=== PATIENT | male | born 1955 | race Caucasian/White ===

== ENCOUNTER 2016-06-16 06:16 | Inpatient (IN) ==
[2016-06-16] MEDS ORDERED: Lidocaine -MPF 4% 5 ML AMPUL ONE (06:30)
[2016-06-16] MEDS ORDERED: Vancomycin 1,000 MG in D5% in Water 250 ML IVPB ONE ×3 (06:38→19:00)
[2016-06-16] MEDS ORDERED: Lidocaine 1% 20 ML MDV ID ONE (06:38)
[2016-06-16] MEDS ORDERED: CeFAZolin Pre 2,000 MG/100 ML 2,000 MG/100 ML BAG IVPB ONE (06:38)
[2016-06-16] MEDS ORDERED: *HR* Midazolam HCl 2 MG/2 ML VIAL ONE (06:41)
[2016-06-16] MEDS ORDERED: *HR* FentaNYL (PF) 100 MCG/2 ML VIAL ONE ×2 (06:41→09:47)
[2016-06-16] MEDS ORDERED: *HR* Propofol 200 MG/20 ML VIAL IVP ONE ×2 (06:41)
[2016-06-16] MEDS ORDERED: Albuterol 2.5 MG/3 ML NEBULIZER IH ONE (06:41)
[2016-06-16] MEDS ORDERED: Ringers Solution, Lactated 1,000 ML IVC SCH (06:45)
[2016-06-16] MEDS ORDERED: *HR* Phenylephrine 10 MG/ML VIAL ONE (06:47)
[2016-06-16] MEDS ORDERED: *HR* Rocuronium Bromide 50 MG/5 ML VIAL ONE (06:47)
[2016-06-16] MEDS ORDERED: *HR* EPINEPHrine 1 MG/ML AMPUL ONE (06:47)
[2016-06-16] MEDS ORDERED: Dexamethasone 4 MG/ML VIAL ONE (06:47)
[2016-06-16] MEDS ORDERED: Ondansetron 4 MG/2 ML VIAL ONE (06:47)
[2016-06-16] MEDS ORDERED: Lidocaine -MPF 2% 2 ML VIAL ONE (06:47)
[2016-06-16] MEDS ORDERED: *HR* Succinylcholine 200 MG/10 ML VIAL IVP ONE (06:47)
--- NOTE | 2016-06-16 07:16 | Anesthesia Evaluation PreOp ---
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) Other Medical History: Hepatic (hepatitis C), GERD Anesthesia History: No Prior Anesthetic Complications, Past Anesthesia Alcohol Use: occasionally, recent Drug use: marijuana Medications and Allergies Budesonide/Formoterol 160/4.5 [Symbicort 160/4.5] 2 puff IH BIDR 05/06/15 [ History] Cilostazol [Pletal] 100 mg PO BID 05/06/15 [History] Clopidogrel [Plavix] 75 mg PO HS 05/06/15 [History] Lisinopril [Zestril] 20 mg PO HS 05/06/15 [History] Lovastatin 10 mg PO HS 05/06/15 [History] TraZODone 50 - 100 mg PO HS MDD 50 05/06/15 [History] Albuterol Sulfate [Albuterol Inhaler] 2 puff IH Q4HR PRN 06/16/16 [History] Aspirin Enteric Coated [Aspirin EC] 81 mg PO DAILY 06/16/16 [History] Buspirone HCl [Buspar] 30 mg PO BID 06/16/16 [History] Cholecalciferol (Vitamin D3) [Vitamin D] 2,000 unit PO DAILY 06/16/16 [History] Methocarbamol [Robaxin] 500 mg PO BID 06/16/16 [History] Ranitidine HCl [Zantac] 150 mg PO BID 06/16/16 [History] Allergies acetaminophen [From Vicodin] Adverse Reaction (Verified 06/16/16 07:21) Nausea hydrocodone [From Vicodin] Adverse Reaction (Verified 06/16/16 07:21) Nausea - Meds/Allergy Pre-op Review Medications Reviewed: Yes Allergies Reviewed: Yes Beta Blockers on Current Med List: No Anesthesia Results - Labs Laboratory Tests 06/10/16 06/10/16 06/10/16 11:07 11:07 11:07 WBC 4.5 Hgb 10.2 L Hct 32.3 L Plt Count 226 PT 11.9 INR 1.1 APTT 30.1 Sodium 134 L Potassium 4.1 BUN 6 L Creatinine 0.92 - Imaging EKG: report reviewed (12/01/2015 SR) Additional studies: 07/05/2013 Echo Impressions: LVEF 55-60%. Normal left ventricular structure and function. Mild left ventricular diastolic dysfunction. Normal right ventricular structure and function. No evidence of PFO with agitated saline contrast. No significant valvular dysfunction. Unable to estimate RVSP due to lack of TR jet. Anesthesia Exam O2 Sat Height 1.83 m Height 1.83 m Height 1.83 m Weight 72.121 kg Weight 72.121 kg Weight 72.121 kg O2 Sat by Pulse Oximetry 100 O2 Sat by Pulse Oximetry 100 Vital Signs Temp Pulse Resp BP Pulse Ox 98.0 F 71 18 141/76 100 06/16/16 06:43 06/16/16 06:43 06/16/16 06:43 06/16/16 06:43 06/16/16 06:43 Height: 6' Weight: 159 lbs NPO (# of Hours): 8 Pain Scale: 5 (back/neck) Pain Scale Used: Numeric (1 - 10) - HEENT Pupil (Motor): EOMI Mallampati: II Teeth: Edentulous Denture Type: Upper: Complete, Lower: Complete Oral Opening: Greater than 3 - [employer] LOC: Oriented [employer] Motor: Normal RUE, Normal LUE, Normal RLE, Normal LLE, Normal Face [employer] Sensory: Normal: RUE, LUE, RLE, LLE, Face - Cardiac Rhythm: Regular Murmur: None - Pulmonary Breath Sounds: bilateral Clear Respiratory Effort: Symmetrical Anesthesia Assess/Plan ASA Score: 3 Modified [place] Scale for Level of Consciousness: Cooperative, oriented, and tranquil Anesthetic Plan: General Monitoring Plan: Standard Monitors Recovery Plan: PACU
[2016-06-16] MEDS ORDERED: Vancomycin 1,000 MG VIAL ONE (07:19)
[2016-06-16] MEDS ORDERED: Heparin 1,000 UNITS/500 mL NS 1,000 ML ONE (07:20)
--- NOTE | 2016-06-16 07:34 | History & Physical Report ---
Date of Encounter: 06/16/16 Time of Encounter: 07:28 24 Hour HP Update - Instructions Instructions: If the History and Physical is less than 30 days old and was completed prior to A.M. admission and or procedure and has NOT been updated on calendar day of procedure please complete this update prior to performing procedure. - Update Patient reports changes in Medical Condition: No Changes in assessment/condition: No Changes in Medication: No Preop tests/diagnostics Reviewed: Yes Surgery Remains Indicated: Yes Consent for Planned Operative Procedure(s) Verified: Yes - Pre-Operative Checklist Preoperative Checklist Indicated: Yes Prophylactic Antibiotic Ordered: Yes (Vancomycin due to MRSA risk) Home Medications Include Beta Jacobo: No Beta Jacobo Taken Today (Day of Surgery): No Beta Jacobo Taken Yesterday (Day Prior to Surgery): No Is VTE Prophylaxis Indicated?: Yes
[2016-06-16] MEDS ORDERED: EPHEDrine 50 MG/ML VIAL ONE (08:41)
[2016-06-16] MEDS ORDERED: *HR* HYDROmorphone 2 MG/ML SYRINGE ONE (08:49)
[2016-06-16] MEDS ORDERED: *HR* HYDROmorphone (PF) 1 MG/ML SYRINGE IVP PRN (09:12)
[2016-06-16] MEDS ORDERED: *HR* Labetalol 100 MG/20 ML MDV IVP PRN (09:12)
[2016-06-16] MEDS ORDERED: *HR* Promethazine 25 MG/ML VIAL IVP PRN (09:12)
--- NOTE | 2016-06-16 11:20 | Operative Note ---
Date of procedure: 06/16/16 Pre-op diagnosis: Peripheral vascular disease with disabling claudication Post-op diagnosis: same Procedure: 1. Abdominal aortogram 2. Left common iliac artery 8 x 37mm stent placement. 3. Left iliofemoral endarterectomy with hemashield patch angioplasty. 4. Left deep and superficial femoral endarterectomy. Complications: None Anesthesia: SABINA Surgeon: Willian Canales Estimated blood loss (cc): 200 Specimen: left lower extremity plaque Condition: stable Disposition: PACU Procedure in Detail: Indications: The patient is a 61 year old male with multiple medical comorbidities including hypertension, hyperlipidemia and tobacco abuse. The patient presented to clinic with disabling left lower extremity claudication. Revascularization was recommended for symptomatic relief. Procedure: The patient was identified in the preoperative area. The risks, benefits, and alternatives of procedure were discussed and all questions were answered. He was taken to the operating room and placed in supine position on the operating room table. After the induction of general endotracheal anesthesia, he was cleaned and draped in normal sterile fashion. An oblique incision was made along the left groin sharply. Hemostasis was obtained with electrocautery. Through a process of blunt and sharp electrocautery dissection, the skin and subcutaneous tissues were incised and the mid to distal external iliac artery was dissected underneath the inguinal ligament and a vessel loop was passed around it. The common femoral artery, deep femoral artery and superficial femoral artery were dissected circumferentially and surrounded with vessel loops. The superficial femoral artery was palpated and the dissection was extended distally until it was noted to be soft without significant plaque. A vessel loop was then used to surround the artery. The patient received 5000 units of heparin intravenously and additional heparin throughout the case to maintain adequate anticoagulation. The vessels were occluded. A large bore needle was used to cannulate the left common femoral artery along an area with soft plaque. A treadalongson wire was advanced into the aorta under fluoroscopic view. A 6 icelandic sheath was exchanged for the needle over the wire. An omniflush catheter was then advanced over the wire. The wire was removed and an angiogram was performed. Angiographys revealed a patent right common iliac stent with stenosis distal to the stent. A wire was used to cross the lesion. The 6 icelandic sheat was exchanged for a long 6 icelandic sheath over the wire, However, the sheath would not cross the stent. The short sheath was then replaced. A jennifer catheter was advnaced over the wire and positioned withtin the stent. It spun freely which indicated that the wire was within the preexisting stent and not behind it. A stent was advanced over the wire, but it would not cross the preexisting stent either. As the stent was withdrawn, it was noted to be caught on the preexisting stent. The stent released. Upon removal of the stent, the stent was noted to be in the left common iliac artery. Attempts were made to retrieve the stent with a snare. However, the stent was lodged against a common iliac artery stenosis. Therefore, an 8 x 37mm stent was advanced across the stenosis and deployed. This secured the first stent in place and prevented future distal embolization. Angiography revealed adequate placement of the stent and the wire and sheath were removed. A longitudinal arteriotomy was made sharply into the common femoral artery. It was extended under the inguinal ligament into the external iliac artery proximally beyond the arterial puncture site. It was then extended into the superficial femoral artery distally. Using a dental freer, an endarterectomy was performed from the external iliac artery through the common femoral artery. The plaque was irregular and hevily calficied. Proximally, the lumen became patent without significant stenosis. The plaque was excised sharply and no elevated flaps were noted at the endpoint. Distally, the plaque was excised at the deep femoral artery. Using a dental freer, the plaque was circumferentially excised from the deep femoral artery using an eversion technique. Release of the loop revealed significant retrograde flow. The loop was tightened. Using the dental freer, a superficial femoral endarterectomy was performed on the irregular, high grade stenotic plaque. The dissection was continued for several centimeters until the lumen was patent without significant stenosis. The plaque was excised and no elevated flap was noted. Retrograde flow was noted through the superficial femoral artery on release of the loop. The loop was tightened. The lumen was irrigated with heparinzed saline. A bovine pericardial patch was cut to fit the defects in the external iliac, common femoral and superficial femoral arteries. The patch was sutured in place with running 6-0 Prolene. Prior to completing the patch anastomosis, each vessel was flushed individually, then reoccluded. Heparinized saline was infused into the lumen. The patch was completed and flow was restored. Thrombin and Gelfoam were used to aid in hemostasis. Polyphasic signal was noted distal to the distal end of the patch as well as the posterior tibial artery. Wound was irrigated with antibiotic-containing saline. Platelet-rich and platelet-poor plasma were infused into the wound. The wounds were reapproximated with layer of 2-0 Vicryl followed by two layers of 3-0 and Vicryl 3-0 Monocryl in the subcuticular layer. Sterile dressings were applied. The patient was extubated and taken to recovery room in stable condition.
[2016-06-16] MEDS ORDERED: Acetaminophen 325 MG TABLET PO PRN (12:36)
[2016-06-16] MEDS ORDERED: Naloxone 0.4 MG/ML INJ IVP PRN (12:36)
[2016-06-16] MEDS ORDERED: traMADol 50 MG TABLET PO PRN (12:36)
[2016-06-16] MEDS ORDERED: Ondansetron 4 MG/2 ML VIAL IVP PRN (12:36)
[2016-06-16] MEDS ORDERED: *HR* Labetalol 20 MG/4 ML SYRINGE IVP PRN (12:36)
[2016-06-16] MEDS ORDERED: *HR* Morphine 2 MG/ML SYRINGE IVP PRN (12:36)
--- NOTE | 2016-06-16 13:19 | Anesthesia Evaluation Post Op ---
Date of Encounter: 06/16/16 Time of Encounter: 13:18 - Vital Signs Vital Signs: Vital Signs/O2 Sat, Most Current Temp Pulse Resp BP Pulse Ox 97.6 F 90 18 110/70 98 06/16/16 12:32 06/16/16 12:52 06/16/16 12:32 06/16/16 12:32 06/16/16 12:32 - Lungs Lungs: Clear Ascult./Percussion - Airway Airway: Non-obstructed - Cardiovascular Regular Rate - Mental Status Mental Status: Alert & Oriented, Answers Appropriately - Pain Pain Scale: 3 Pain Scale used: Numeric (1 - 10) - Nausea Vomiting Nausea Vomiting: Not Present - Hydration Hydration: Tolerates oral liquids, Marlow catheter
[2016-06-16] MEDS: *HR* Metoprolol 5 MG/5 ML VIAL IVP SCH ×2 (14:16→16:59)
[2016-06-16] MEDS: *HR* OxyCODONE Immed Rel 5 MG TABLET PO PRN (14:19)
[2016-06-16] MEDS: ceFAZolin 2,000 MG in D5% in Water 100 ML IVPB SCH (16:57)
[2016-06-16] MEDS ORDERED: *HR* Heparin 5,000 UNIT/ML VIAL SQ SCH (18:00)
[2016-06-16] MEDS: Budesonide/Formoterol 160/4.5 MDI IH SCH (20:04)
[2016-06-16] MEDS ORDERED: traZODone 50 MG TABLET PO SCH (21:00)
[2016-06-16] MEDS: Famotidine 20 MG TABLET PO SCH (21:09)
[2016-06-16] MEDS: Methocarbamol 500 MG TABLET PO SCH (21:09)
[2016-06-17] MEDS: ceFAZolin 2,000 MG in D5% in Water 100 ML IVPB SCH (00:04)
[2016-06-17] MEDS: *HR* Metoprolol 5 MG/5 ML VIAL IVP SCH ×3 (00:05→12:33)
[2016-06-17 04:54] LABS: BUN/Creatinine Ratio 7 (6-26); Blood Urea Nitrogen 6 mg/dL (8-26); Calcium 7.7 mg/dL (8.6-10.8); Carbon Dioxide 27 mEq/L (19-29); Chloride 103 mEq/L (98-109); Glucose 102 mg/dL (70-99); Osmolality,Calculated 280 (280-300); Potassium 3.5 mEq/L (3.5-4.5); Sodium 136 mEq/L (136-145); eGFR For African Americans > 60 (> 60); eGFR For Non-African Americans > 60 (> 60)
[2016-06-17 04:56] LABS: Basophils % 0.5 %; Eosinophils % 0.6 %; Hematocrit 20.2 % (37.5-50.1); Immature Granulocytes % 0.2 % (0-4); Lymphocytes # 1.6 K/mcL (0.6-4.6); Lymphocytes % 26.1 %; Mean Corpuscular HGB Conc 31.7 g/dL (31.6-35.5); Mean Corpuscular Hemoglobin 29.4 pg (28.0-33.3); Mean Corpuscular Volume 92.7 fL (83.0-100.0); Mean Platelet Volume 10.7 fL (9.4-12.4); Monocytes # 0.9 K/mcL (0.0-1.3); Monocytes % 14.4 %; Neutrophils # 3.6 K/mcL (1.6-8.9); Platelet Count 151 K/mcL (140-400); Red Blood Count 2.18 M/mcL (4.19-5.50); Red Cell Distribution Width 15.4 % (11.5-14.5); Segmented Neutrophils % 58.2 %
[2016-06-17 05:17] LABS: Hemoglobin 6.4 g/dL (12.9-16.9)
[2016-06-17] MEDS ORDERED: Lisinopril 20 MG TABLET PO SCH (09:00)
[2016-06-17] MEDS ORDERED: Aspirin Enteric Coated 81 MG Tablet PO SCH (09:00)
[2016-06-17] MEDS ORDERED: Cholecalciferol (D-3) 1,000 UNIT TABLET PO SCH (09:00)
[2016-06-17] MEDS ORDERED: *HR* Heparin 5,000 UNIT/ML VIAL SQ SCH (09:00)
--- NOTE | 2016-06-17 09:17 | Discharge Summary ---
Date of Encounter: 06/17/16 Time of Encounter: 10:20 - Discharge Diagnosis (1) Atherosclerosis of [place] arteries of extremities with intermittent claudication, bilateral legs Priority: Primary Status: Chronic Comments: The patient is postoperative day #1 after left femoral endarterectomy and iliac stent. He is alert and stable. His foot is warm. He has no hematoma. He will be discharged today. (2) HTN (hypertension) Priority: Secondary Status: Chronic Comments: The patient was counseled regarding atherosclerotic risk factor reduction. Qualifiers: Hypertension type: essential hypertension Qualified Code(s): I10 - Essential (primary) hypertension (3) COPD (chronic obstructive pulmonary disease) Priority: Secondary Status: Chronic Qualifiers: COPD type: emphysema Emphysema type: panlobular Qualified Code(s): J43.1 - Panlobular emphysema (4) Chronic anemia Priority: Secondary Status: Chronic Comments: The patient has chronic anemia. He is hemodynamically stable without evidence of ongoing blood loss. He is able to ambulate without difficulty and is not short of breath. (5) Tobacco abuse Priority: Secondary Status: Chronic Comments: He was counseled regarding smoking cessation. - Discharge Medications Prescriptions: OxyCODONE/APAP 5/325 [Percocet 5/325 MG] 1 each PO Q4HR PRN #40 tablet PRN Reason: POSTOPERATIVE PAIN Home Medications: Budesonide/Formoterol 160/4.5 [Symbicort 160/4.5] 2 puff IH BIDR 05/06/15 [ History] Cilostazol [Pletal] 100 mg PO BID 05/06/15 [History] Clopidogrel [Plavix] 75 mg PO DAILY 05/06/15 [History] Lisinopril [Zestril] 20 mg PO DAILY 05/06/15 [History] Lovastatin 10 mg PO DAILY 05/06/15 [History] TraZODone 50 - 150 mg PO HS MDD 150 05/06/15 [History] Albuterol Sulfate [Albuterol Inhaler] 2 puff IH Q4HR PRN 06/16/16 [History] Aspirin Enteric Coated [Aspirin EC] 81 mg PO DAILY 06/16/16 [History] Buspirone HCl [Buspar] 30 mg PO BID 06/16/16 [History] Cholecalciferol (Vitamin D3) [Vitamin D3] 2,000 unit PO DAILY 06/16/16 [History] Methocarbamol [Robaxin] 500 mg PO BID 06/16/16 [History] Ranitidine HCl [Zantac] 150 mg PO BID 06/16/16 [History] OxyCODONE/APAP 5/325 [Percocet 5/325 MG] 1 each PO Q4HR PRN #40 tablet 06/17/16 [Rx] Allergies/Adverse Reactions: Allergies acetaminophen [From Vicodin] Adverse Reaction (Verified 06/16/16 07:21) Nausea hydrocodone [From Vicodin] Adverse Reaction (Verified 06/16/16 07:21) Nausea Date of admission: 06/16/16 13:18 Primary care physician: Annamarie Denton Procedure(s) Performed: Left common iliac stent, left iliofemoral endarterectomy. Discharging clinician: Willian Canales Anticipated date of discharge: 06/17/16 - Patient Status Disposition: Home, Self-Care Condition: Good Functional capacity at discharge: independent ambulation Overall status at discharge: patient is back to baseline - Discharge Instructions Instructions: Oxycodone/Acetaminophen (By mouth), Femoropopliteal Bypass (DC), Cigarette Smoking and Your Health, Mason Liner (GEN) Follow Up With: Willian Canales MD [Partnered Physician] - 07/27/16 1:10 pm Annamarie Denton CNP [Primary Care Provider] - 06/24/16 9:00 am Additional Instructions: May remove bandage and shower on 06/18/16. Wash wound gently and pat to dry. Apply dry gauze to wound daily for 7 days. No tub baths or swimming until 07/11/16. Call Dr. Canales at [phone] with questions or concerns. Continue to use the incentive spirometer. HGB at discharge was 7.5 No driving until directed by Dr. Canales. Call for S/S of infection. Advance to your usual diet. Increase activity as tolerated. - Diet and Activity Activity: ambulate only with your walker, increase activity as tolerated Diet: advance to your usual diet - Hospital Course Hospital course: Mr. Mcintyre is a 61 year old male with a history of peripheral vascular disease with disabling claudication. He was admitted on 06/16/16. He was taken to the OR where he underwent an angiogram, a left common iliac stent and extensive left lower extremity endarterectomy. He tolerated the procedure well and was discharged on postoperative day #1 without complications. Time spent discussing smoking cessation with patient: 3 to 10 minutes - Time Spent with Patient Total time spent providing and/or coordinating discharge services: Exam Vital Signs, Last 4 Hours Temp Pulse Resp BP Pulse Ox 06/17/16 07:53 98.9 F 75 18 117/65 95 06/17/16 07:44 83 97 06/17/16 05:36 98.5 F 95 20 113/58 98 General: Present: Conversant, No Apparent Distress Neck: Absent: JVD, Lymphadenopathy Cardiac: Present: Reg Rate and Rhythm Lungs: Present: Normal Breath Sounds Neuro: Present: Alert and responsive, No focal deficits noted Vascular: Present: Normal capillary refill, Surgical incisions (clean, dry and intact without erythema or drainage, no hematoma), Other (pedal signals present) . Absent: Cyanosis, Edema Skin: Present: No rashes noted on visualized skin - VTE Documentation of Mechanical Device: Intermittent pneumatic compression device
[2016-06-17] MEDS: *HR* OxyCODONE Immed Rel 5 MG TABLET PO PRN (09:39)
[2016-06-17] MEDS: Methocarbamol 500 MG TABLET PO SCH (09:59)
[2016-06-17] MEDS: Famotidine 20 MG TABLET PO SCH (09:59)
[2016-06-17 10:39] LABS: Hematocrit 24.6 % (37.5-50.1); Hemoglobin 7.5 g/dL (12.9-16.9)
[2016-06-17 11:13] VITALS: BP 104/66
[2016-06-17] MEDS: Budesonide/Formoterol 160/4.5 MDI IH SCH (12:11)
== END 2016-06-17 14:09 | disposition home or self-care (01) | DRG 169 ==
LOC: SAMDAY 06:16 → 2NNU 13:18
PROVIDERS: ADMIT Surgery; ATTEND Surgery

== ENCOUNTER 2016-10-05 10:27 | Inpatient (IN) ==
[2016-10-05] MEDS ORDERED: Lidocaine -MPF 1% 2 ML VIAL ID ONE (10:44)
[2016-10-05] MEDS ORDERED: Vancomycin 1,000 MG in D5% in Water 250 ML IVPB ONE ×2 (10:44→23:30)
[2016-10-05] MEDS ORDERED: CeFAZolin Pre 2,000 MG/100 ML 2,000 MG/100 ML BAG IVPB ONE (10:44)
[2016-10-05] MEDS ORDERED: Albuterol 2.5 MG/3 ML NEBULIZER IH ONE (10:45)
[2016-10-05] MEDS ORDERED: Ringers Solution, Lactated 1,000 ML IVC SCH (10:45)
[2016-10-05] MEDS ORDERED: *HR* FentaNYL (PF) 100 MCG/2 ML VIAL ONE (10:50)
[2016-10-05] MEDS ORDERED: *HR* Propofol 200 MG/20 ML VIAL IVP ONE (10:54)
[2016-10-05] MEDS ORDERED: *HR* Rocuronium Bromide 50 MG/5 ML VIAL ONE (10:55)
[2016-10-05] MEDS ORDERED: Lidocaine -MPF 2% 2 ML VIAL ONE ×2 (10:55→12:55)
[2016-10-05] MEDS ORDERED: *HR* Midazolam HCl 2 MG/2 ML VIAL ONE (10:56)
[2016-10-05] MEDS ORDERED: *HR* Remifentanil 2 MG VIAL IVP ONE (10:58)
[2016-10-05] MEDS ORDERED: Vancomycin 1,000 MG in D5% in Water 250 ML IVPB SCH (11:30)
--- NOTE | 2016-10-05 11:31 | History & Physical Report ---
Date of Encounter: 10/05/16 Time of Encounter: 11:15 24 Hour HP Update - Instructions Instructions: If the History and Physical is less than 30 days old and was completed prior to A.M. admission and or procedure and has NOT been updated on calendar day of procedure please complete this update prior to performing procedure. - Update Patient reports changes in Medical Condition: No Changes in examination, assessment, or condition: No Changes in Medication: No Preop tests/diagnostics Reviewed: Yes Surgery Remains Indicated: Yes Consent for Planned Operative Procedure(s) Verified: Yes - Pre-Operative Checklist Preoperative Checklist Indicated: Yes Prophylactic Antibiotic Ordered: Yes (vancomycin due to MRSA risk) Home Medications Include Beta Jacobo: No Beta Jacobo Taken Today (Day of Surgery): No Beta Jacobo Taken Yesterday (Day Prior to Surgery): No Is VTE Prophylaxis Indicated?: Yes
[2016-10-05] MEDS ORDERED: Heparin 1,000 UNITS/500 mL NS 1,000 ML ONE (12:05)
--- NOTE | 2016-10-05 12:10 | Anesthesia Evaluation PreOp ---
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: CVA (L-sided weakness - resolved somewhat) Other Medical History: Hepatic (Hep C) Anesthesia History: No Prior Anesthetic Complications, Past Anesthesia (prior R fem endarterectomy, etc) Alcohol Use: occasionally, recent Drug use: marijuana Medications and Allergies Budesonide/Formoterol 160/4.5 [Symbicort 160/4.5] 2 puff IH BIDR 05/06/15 [ History] Cilostazol [Pletal] 100 mg PO BID 05/06/15 [History] Clopidogrel [Plavix] 75 mg PO DAILY 05/06/15 [History] Lisinopril [Zestril] 20 mg PO DAILY 05/06/15 [History] Lovastatin 10 mg PO DAILY 05/06/15 [History] traZODone [TraZODone] 150 mg PO HS MDD 150 05/06/15 [History] Albuterol Sulfate [Albuterol Inhaler] 2 puff IH Q4HR PRN 06/16/16 [History] Aspirin Enteric Coated [Aspirin EC] 81 mg PO DAILY 06/16/16 [History] Buspirone HCl [Buspar] 30 mg PO BID 06/16/16 [History] Cholecalciferol (Vitamin D3) [Vitamin D3] 2,000 unit PO DAILY 06/16/16 [History] Methocarbamol [Robaxin] 500 mg PO BID 06/16/16 [History] Ranitidine HCl [Zantac] 150 mg PO BID 06/16/16 [History] Cholecalciferol (Vitamin D3) [Vitamin D] 2,000 unit PO QDPC 06/28/16 [History] Ferrous Sulfate [Iron] 325 mg PO QDPC 06/28/16 [History] Moxifloxacin OPTH Drops [Vigamox] 1 drop BOTH EYES BID 06/28/16 [History] OxyCODONE/APAP 5/325 [Percocet 5/325 MG] 1 each PO 1-2XD PRN 06/28/16 [History] PrednisoLONE Acetate 1% Opth [PredFORTE 1%] 1 drop BOTH EYES QID 06/28/16 [ History] Sertraline [Zoloft] 50 mg PO DAILY 06/28/16 [History] Allergies hydrocodone [From Vicodin] Adverse Reaction (Verified 06/28/16 20:13) Nausea hydrocodone only - pt is ok with oxycodone - Meds/Allergy Pre-op Review Medications Reviewed: Yes Allergies Reviewed: Yes Beta Blockers on Current Med List: No Anesthesia Results - Labs Laboratory Tests 09/30/16 09/30/16 09/30/16 11:21 11:21 11:21 WBC 6.7 Hgb 12.4 L Hct 37.6 Plt Count 185 PT 11.3 INR 1.0 APTT 31.5 Sodium 136 Potassium 4.1 Chloride 102 Carbon Dioxide 28 BUN 7 L Creatinine 0.89 Est GFR ( Amer) > 60 Est GFR (Non-Af Amer) > 60 BUN/Creatinine Ratio 8 Glucose 77 - Imaging EKG: report reviewed, image reviewed (SR) Anesthesia Exam Last Vital Signs Temp 98.2 F 10/05/16 10:47 Pulse 78 10/05/16 10:47 Resp 18 10/05/16 11:15 BP 129/77 10/05/16 11:15 Pulse Ox 98 10/05/16 11:15 Weight: 72 kg NPO (# of Hours): > 8 hrs - HEENT Pupil (Motor): Pupils equal Mallampati: III Teeth: Edentulous Oral Opening: Greater than 3 - [employer]NAGER LOC: Oriented [employer]POS[employer]NAGER Motor: Deficit LUE, Deficit LLE - Cardiac Rhythm: Regular Murmur: None - Pulmonary Breath Sounds: bilateral Clear Respiratory Effort: Symmetrical Anesthesia Assess/Plan ASA Score: 3 Modified [place] Scale for Level of Consciousness: Cooperative, oriented, and tranquil Anesthetic Plan: General Monitoring Plan: Standard Monitors, A-Line Recovery Plan: PACU
[2016-10-05] MEDS ORDERED: Heparin 1,000 UNITS/500 mL NS 500 ML ONE (12:13)
--- NOTE | 2016-10-05 13:18 | Anesthesia Procedures ---
Date of Encounter: 10/05/16 Time of Encounter: 13:00 Procedures: Anesthesia - Arterial Line Consent obtained: written consent Time out performed: Yes (with loki RN) Sedation: Versed (mg): 2 Sedation: Fentanyl (mcg): 100 Local Anesthetic: Lidocaine 1% Amount of Anesthetic used (mls): 0.3 Size (Gauge): 20 Length (inches): 1 3/4 Technique Used: sterile prep, guide wire technique Post-Procedure: line taped into place Patient tolerated procedure: well Complications: none Site: Radial R Vitals: 3 Vital Signs Time 1300 1310 BP 118/73 113/66 Pulse 70 65 Resp 16 14 O2 Sat 99 96
[2016-10-05] MEDS ORDERED: EPHEDrine 50 MG/ML VIAL ONE (14:02)
[2016-10-05] MEDS ORDERED: *HR* Heparin 5,000 UNIT/ML VIAL ONE (14:06)
[2016-10-05] MEDS ORDERED: Dexamethasone 4 MG/ML VIAL ONE (14:07)
[2016-10-05] MEDS ORDERED: Ondansetron 4 MG/2 ML VIAL ONE (14:07)
[2016-10-05] MEDS ORDERED: *HR* Promethazine 25 MG/ML VIAL IVP PRN (15:08)
[2016-10-05] MEDS ORDERED: Neostigmine Methylsulfate 3 MG/3 ML SYRINGE ONE (15:44)
[2016-10-05] MEDS ORDERED: *HR* Labetalol 20 MG/4 ML SYRINGE IVP ONE (16:01)
--- NOTE | 2016-10-05 16:08 | Operative Note ---
Date of procedure: 10/05/16 Pre-op diagnosis: Peripheral vascular disease with disabling claudication Post-op diagnosis: same Procedure: 1. Angiogram via right common femoral artery with 6 polish sheath. 2. Right iliofemoral enadarterectomy. Complications: None Anesthesia: GETA Surgeon: Willian Canales Estimated blood loss (cc): 50 Specimen: right iliofemoral plaque Condition: stable Disposition: PACU Procedure in Detail: Indications: The patient is a 61 year old male with a long history of peripheral vascular disease with disabling claudication. He previously had a right common iliac stent placed as well as a femoral endarterectomy. He susbsequently developed external iliac and common femroal artery stenosis. Revascularization was recommended for symptomatic relief. Procedure: The patient was identified in the preoperative area. The risks, benefits, and alternatives of procedure were discussed and all questions were answered. He was taken to the operating room and placed in supine position on the operating room table. After the induction of general endotracheal anesthesia, he was cleaned and draped in normal sterile fashion. An oblique incision was made through the scar in the right groin sharply. Hemostasis was obtained with electrocautery. Through a process of blunt and sharp electrocautery dissection, the skin and subcutaneous tissues were incised and the right distal iliac, common femoral, deep femoral and superficial femoral arteries were dissected circumferentially and surrounded with vessel loops. The patient received 5000 units of heparin intravenously and additional heparin throughout the case to maintain adequate anticoagulation. The vessels were occluded by applying tension to the vessel loops. A longitudinal ateriotomy was made into the common femoral artery and extended into th edistal external iliac artery along the previously placed bovine pericardial patch. Recurrent stenosis with both plaque and intimal hyperplasia was noted. . A glidewire was advanced along the plaque proximally into the right external iliac artery. A 6 polish sheath was advanced over the wire. Using a berenstain catheter, the wire was advanced into the right common iliac artery through the external iliac artery stenosis. The wire and catheter remained in the dissection plane and would not enter the common iliac artery stent. This was confirmed with angiography. The wire and sheath were removed and the vessel was flushed. Using a dental [place], a standard endarterectomy was performed along the distal external iliac and common femoral arteries. The dissection was performed as proximally as possible and the external iliac artery plaque was retrieved. This resulted in pulsatile antegrade flow. Proximal and distal endpoints were inspected. No elevated flaps were noted. The bovine pericardial patch was then reapproximated with running 6-0 Prolene. Prior to completing the patch anastomosis, each vessel was flushed individually, then reoccluded. Heparinized saline was infused into the lumen. The patch was completed and flow was restored. A firm right inguinal lymph node was excised and sent to pathology. Thrombin and Gelfoam were used to aid in hemostasis. Polyphasic signal was noted distal to the distal end of the patch as well as the posterior tibial artery. Wound was irrigated with antibiotic-containing saline. Platelet-rich and platelet-poor plasma were infused into the wound. The wounds were reapproximated with layer of 2-0 Vicryl followed by two layers of 3-0 and Vicryl 3-0 Monocryl in the subcuticular layer. Sterile dressings were applied. The patient was extubated, taken to recovery room in stable condition.
[2016-10-05] MEDS: *HR* HYDROmorphone (PF) 1 MG/ML SYRINGE IVP PRN ×2 (16:18→16:29)
--- NOTE | 2016-10-05 17:21 | Anesthesia Evaluation Post Op ---
Date of Encounter: 10/05/16 Time of Encounter: 17:21 - Vital Signs Vital Signs: Last Vital Signs Temp 97.8 F 10/05/16 17:08 Pulse 55 10/05/16 17:18 Resp 16 10/05/16 17:18 BP 114/66 10/05/16 17:18 Pulse Ox 94 10/05/16 17:18 - Lungs Lungs: Clear Ascult./Percussion - Airway Airway: Non-obstructed - Cardiovascular Regular Rate - Mental Status Mental Status: Alert & Oriented, Answers Appropriately - Pain Pain Scale: 2 - Nausea Vomiting Nausea Vomiting: Not Present - Hydration Hydration: Ice chips, Marlow catheter - Discharge PostOp Status: Transfer Patient to floor
[2016-10-05] MEDS ORDERED: Naloxone 0.4 MG/ML INJ IVP PRN (17:43)
[2016-10-05] MEDS ORDERED: Ondansetron 4 MG/2 ML VIAL IVP PRN (17:43)
[2016-10-05] MEDS ORDERED: Acetaminophen 325 MG TABLET PO PRN (17:43)
[2016-10-05] MEDS ORDERED: *HR* Labetalol 20 MG/4 ML SYRINGE IVP PRN (17:43)
[2016-10-05] MEDS: *HR* Metoprolol 5 MG/5 ML VIAL IVP SCH (18:15)
[2016-10-05] MEDS: *HR* OxyCODONE/APAP 5/325 TABLET PO PRN (19:35)
[2016-10-05] MEDS: Famotidine 20 MG TABLET PO SCH (20:48)
[2016-10-05] MEDS: Methocarbamol 500 MG TABLET PO SCH (20:48)
[2016-10-05] MEDS ORDERED: traZODone 50 MG TABLET PO SCH (21:00)
[2016-10-05] MEDS ORDERED: Primidone 50 MG TABLET PO SCH (21:00)
[2016-10-05] MEDS: Budesonide/Formoterol 160/4.5 MDI IH SCH (21:59)
[2016-10-06] MEDS: ceFAZolin 2,000 MG in D5% in Water 100 ML IVPB SCH ×2 (00:02→08:37)
[2016-10-06] MEDS: *HR* OxyCODONE/APAP 5/325 TABLET PO PRN ×3 (00:03→10:39)
[2016-10-06] MEDS: *HR* Metoprolol 5 MG/5 ML VIAL IVP SCH ×3 (00:10→12:07)
[2016-10-06 05:51] LABS: Basophils # 0.1 K/mcL (0.0-0.2); Basophils % 0.7 %; Eosinophils % 0.3 %; Hemoglobin 11.9 g/dL (12.9-16.9); Immature Granulocytes % 0.4 % (0-4); Lymphocytes # 1.1 K/mcL (0.6-4.6); Lymphocytes % 14.5 %; Mean Corpuscular Hemoglobin 34.4 pg (28.0-33.3); Mean Corpuscular Volume 101.2 fL (83.0-100.0); Mean Platelet Volume 11.1 fL (9.4-12.4); Monocytes # 0.3 K/mcL (0.0-1.3); Monocytes % 4.6 %; Neutrophils # 5.8 K/mcL (1.6-8.9); Platelet Count 177 K/mcL (140-400); Red Blood Count 3.46 M/mcL (4.19-5.50); Red Cell Distribution Width 13.1 % (11.5-14.5); Segmented Neutrophils % 79.5 %
[2016-10-06] MEDS ORDERED: *HR* Heparin 5,000 UNIT/ML VIAL SQ SCH (06:00)
[2016-10-06 06:02] LABS: BUN/Creatinine Ratio 7 (6-26); Blood Urea Nitrogen 6 mg/dL (8-26); Carbon Dioxide 24 mEq/L (19-29); Chloride 98 mEq/L (98-109); Glucose 170 mg/dL (70-99); Osmolality,Calculated 278 (280-300); Potassium 3.8 mEq/L (3.5-4.5); Sodium 133 mEq/L (136-145); eGFR For African Americans > 60 (> 60); eGFR For Non-African Americans > 60 (> 60)
[2016-10-06 07:27] VITALS: BP 122/100
--- NOTE | 2016-10-06 07:53 | Discharge Summary ---
Date of Encounter: 10/06/16 Time of Encounter: 07:45 - Discharge Diagnosis (1) Atherosclerosis of [place] arteries of extremities with intermittent claudication, bilateral legs Priority: Secondary Status: Chronic Comments: The patient is postopertive day #1 after a right iliofemoral endarteretomy. His foot is warm and his compartments are soft. He has a polyphasic signal in his right pedal vessels. He will be discharged today. (2) HTN (hypertension) Priority: Secondary Status: Chronic Comments: He was counseled regarding atherosclerotic risk factor reduction. Qualifiers: Hypertension type: essential hypertension Qualified Code(s): I10 - Essential (primary) hypertension (3) COPD (chronic obstructive pulmonary disease) Priority: Secondary Status: Chronic Qualifiers: COPD type: emphysema Emphysema type: panlobular Qualified Code(s): J43.1 - Panlobular emphysema (4) Tobacco abuse Priority: Primary Status: Chronic Comments: He was counseled regarding smoking cessation. (5) Chronic anemia Priority: Secondary Status: Chronic Comments: The patient has chronic anemia with acute expected postoperative blood loss anemia. He is hemodynamically stable without evidence of ongoing blood loss. - Discharge Medications Prescriptions: OxyCODONE/APAP 5/325 [Percocet 5/325 MG] 1 each PO Q4HR PRN #30 tablet PRN Reason: postoperative pain Home Medications: Budesonide/Formoterol 160/4.5 [Symbicort 160/4.5] 2 puff IH BIDR 05/06/15 [ History] Cilostazol [Pletal] 100 mg PO BID 05/06/15 [History] Clopidogrel [Plavix] 75 mg PO DAILY 05/06/15 [History] Lisinopril [Zestril] 20 mg PO DAILY 05/06/15 [History] Lovastatin 10 mg PO DAILY 05/06/15 [History] traZODone [TraZODone] 50 - 150 mg PO HS MDD 150 05/06/15 [History] Albuterol Sulfate [Albuterol Inhaler] 2 puff IH Q4HR PRN 06/16/16 [History] Aspirin Enteric Coated [Aspirin EC] 81 mg PO DAILY 06/16/16 [History] Buspirone HCl [Buspar] 30 mg PO BID 06/16/16 [History] Cholecalciferol (Vitamin D3) [Vitamin D3] 2,000 unit PO DAILY 06/16/16 [History] Methocarbamol [Robaxin] 500 mg PO BID 06/16/16 [History] Ranitidine HCl [Zantac] 150 mg PO BID 06/16/16 [History] Ferrous Sulfate [Iron] 325 mg PO DAILY 06/28/16 [History] Sertraline [Zoloft] 50 mg PO DAILY 06/28/16 [History] Primidone [Mysoline] 50 mg PO HS 10/05/16 [History] OxyCODONE/APAP 5/325 [Percocet 5/325 MG] 1 each PO Q4HR PRN #30 tablet 10/06/16 [Rx] Allergies/Adverse Reactions: Allergies hydrocodone [From Vicodin] Adverse Reaction (Verified 10/05/16 12:16) Nausea hydrocodone only - pt is ok with oxycodone Date of admission: 10/05/16 17:36 Primary care physician: Annamarei Denton Procedure(s) Performed: Angiogram, right iliofemoral endarterectomy Discharging clinician: Willian Canales Anticipated date of discharge: 10/06/16 - Patient Status Disposition: Home, Self-Care Condition: Good Functional capacity at discharge: independent ambulation Overall status at discharge: patient is back to baseline - Discharge Instructions Instructions: Oxycodone/Acetaminophen (By mouth), Peripheral Vascular Disorders (DC) Follow Up With: Willian Canales MD [Partnered Physician] - 11/09/16 1:00 pm Annamarie Denton CNP [Primary Care Provider] - 10/10/16 9:00 am () Additional Instructions: May remove bandage and shower on 10/07/16. Wash wound gently and pat to dry. Dry gauze to wound daily for 7 days. No tub baths or swimming until 11/01/16. Call Dr. Canales at [phone] with questions or concerns. - Diet and Activity Activity: increase activity as tolerated Diet: advance to your usual diet - Hospital Course Hospital course: Mr. Mcintyre is a 61 year old male with a history of peripheral vascular disease with disabling claudication. He underwent a right iliofemoral endarterectomy and tolerated the procedure well. He was discharged on postoperative day #1 in stable condition without complication. Time spent discussing smoking cessation with patient: 3 to 10 minutes - Time Spent with Patient Total time spent providing and/or coordinating discharge services: Exam Vital Signs, Last 4 Hours Temp Pulse Resp BP Pulse Ox 10/06/16 07:23 97.5 F L 76 16 122/100 97 10/06/16 04:16 97.4 F L 57 15 115/80 97 10/06/16 04:14 46 10/06/16 04:00 49 100/68 General: Present: Conversant HEENT: Present: Pupils equal Cardiac: Present: Reg Rate and Rhythm, Normal S1 and S2 Lungs: Present: Normal Breath Sounds Neuro: Present: Alert and responsive, No focal deficits noted, Motor nerves grossly intact, Sensory nerves grossly intact Abdomen: Present: Soft Vascular: Present: Surgical incisions (incision clean, dry and intact without erythema or drainage, no hematoma) - VTE Documentation of Mechanical Device: Intermittent pneumatic compression device
[2016-10-06] MEDS: Budesonide/Formoterol 160/4.5 MDI IH SCH (07:56)
[2016-10-06] MEDS: Famotidine 20 MG TABLET PO SCH (08:36)
[2016-10-06] MEDS: Methocarbamol 500 MG TABLET PO SCH (08:37)
[2016-10-06] MEDS ORDERED: Aspirin Enteric Coated 81 MG Tablet PO SCH (09:00)
[2016-10-06] MEDS ORDERED: Cholecalciferol (D-3) 1,000 UNIT TABLET PO SCH (09:00)
[2016-10-06] MEDS ORDERED: Lisinopril 20 MG TABLET PO SCH (09:00)
== END 2016-10-06 13:22 | disposition home or self-care (01) | DRG 181 ==
LOC: SAMDAY 10:27 → 2NNU 17:36
PROVIDERS: ADMIT Surgery; ATTEND Surgery

== ENCOUNTER 2017-09-13 06:14 | Inpatient (IN) ==
[~2017-09-13 06:14] MED LIST: Vancomycin 1,000 MG, Sodium Chloride IRRigation 1,000 ML IR ONE
--- NOTE | 2017-09-13 07:05 | Anesthesia Evaluation PreOp ---
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: CVA (2012, no residual), Other (tremors) Other Medical History: Hepatic (cirrhosis, hepatitis C), GERD, Other (anxiety) Anesthesia History: No Prior Anesthetic Complications, Past Anesthesia Alcohol Use: occasionally, recent Drug use: marijuana Medications and Allergies Budesonide/Formoterol 160/4.5 [Symbicort 160/4.5] 2 puff IH BIDR 05/06/15 [ History] Cilostazol [Pletal] 100 mg PO BID 05/06/15 [History] Clopidogrel [Plavix] 75 mg PO DAILY 05/06/15 [History] Lisinopril [Zestril] 20 mg PO DAILY 05/06/15 [History] Lovastatin 10 mg PO DAILY 05/06/15 [History] traZODone [TraZODone] 50 - 150 mg PO HS MDD 150 05/06/15 [History] Albuterol Sulfate [Albuterol Inhaler] 2 puff IH Q4HR PRN 06/16/16 [History] Aspirin Enteric Coated [Aspirin EC] 81 mg PO DAILY 06/16/16 [History] Buspirone HCl [Buspar] 30 mg PO BID 06/16/16 [History] Cholecalciferol (Vitamin D3) [Vitamin D3] 2,000 unit PO DAILY 06/16/16 [History] Methocarbamol [Robaxin] 500 mg PO BID 06/16/16 [History] raNITIdine HCl [Zantac] 150 mg PO BID 06/16/16 [History] Ferrous Sulfate [Iron] 325 mg PO DAILY 06/28/16 [History] Sertraline [Zoloft] 50 mg PO DAILY 06/28/16 [History] Primidone [Mysoline] 50 mg PO HS 10/05/16 [History] OxyCODONE/APAP 5/325 [Percocet 5/325 MG] 1 each PO Q4HR PRN #30 tablet 10/06/16 [Rx] 3 Allergy/AdvReac Type Severity Reaction Status Date / Time hydrocodone [From Vicodin] AdvReac Nausea Verified 10/05/16 12:16 - Meds/Allergy Pre-op Review Medications Reviewed: Yes Allergies Reviewed: Yes Beta Blockers on Current Med List: No Anesthesia Results - Labs Laboratory Tests 08/21/17 08/21/17 08/21/17 11:19 11:19 11:19 WBC 5.1 Hgb 14.4 Hct 43.7 Plt Count 143 PT 11.0 INR 1.0 APTT 29.8 Sodium 135 L Potassium 4.0 BUN 7 L Creatinine 0.94 - Imaging EKG: report reviewed (08/21/2017 [facility]ADYCARDIA) Anesthesia Exam O2 Sat Height 1.83 m Height 1.83 m Weight 76.204 kg Weight 76.204 kg O2 Sat by Pulse Oximetry 99 Vital Signs Temp Pulse Resp BP Pulse Ox 97.7 F 67 18 141/80 99 09/13/17 06:31 09/13/17 06:31 09/13/17 06:31 09/13/17 06:31 09/13/17 06:31 Height: 6' Weight: 168 lbs NPO (# of Hours): 8 Pain Scale: 0 Pain Scale Used: Numeric (1 - 10) - HEENT Pupil (Motor): EOMI Mallampati: III Teeth: Edentulous Denture Type: Upper: Complete, Lower: Complete Oral Opening: Greater than 3 - FLARER LOC: Oriented FLARER Motor: Normal RUE, Normal LUE, Normal RLE, Normal LLE, Normal Face FLARER Sensory: Normal: RUE, LUE, RLE, LLE, Face - Cardiac Rhythm: Regular Murmur: None - Pulmonary Breath Sounds: bilateral Clear Respiratory Effort: Symmetrical Anesthesia Assess/Plan ASA Score: 3 Modified [place] Scale for Level of Consciousness: Cooperative, oriented, and tranquil Anesthetic Plan: General Monitoring Plan: Standard Monitors, A-Line Recovery Plan: PACU
[2017-09-13] MEDS ORDERED: *HR* Midazolam HCl 2 MG/2 ML VIAL ONE (07:09)
[2017-09-13] MEDS ORDERED: *HR* FentaNYL (PF) 100 MCG/2 ML VIAL ONE ×3 (07:09→11:16)
[2017-09-13] MEDS ORDERED: *HR* Propofol 200 MG/20 ML VIAL IVP ONE (07:09)
[2017-09-13] MEDS ORDERED: CeFAZolin Syr 2,000MG/20 ML 2,000 MG/20 ML SYRINGE IVPB ONE (07:10)
[2017-09-13] MEDS ORDERED: Albuterol 2.5 MG/3 ML NEBULIZER IH ONE (07:11)
[2017-09-13] MEDS ORDERED: *HR* Succinylcholine 200 MG/10 ML VIAL IVP ONE (07:12)
[2017-09-13] MEDS ORDERED: Lidocaine -MPF 2% 2 ML VIAL ONE (07:12)
[2017-09-13] MEDS ORDERED: Albuterol 2.5 MG/3 ML NEBULIZER ONE (07:13)
[2017-09-13] MEDS ORDERED: Ringers Solution, Lactated 1,000 ML IVC SCH (07:15)
--- NOTE | 2017-09-13 07:19 | Pre-Sedation Evaluation ---
Pre-sedation evaluation - Pre-sedation checklist Date of procedure: 09/13/17 Procedure: Peripheral Angiogram Recent Vitals: Last Vital Signs Temp 97.7 F 09/13/17 06:31 Pulse 67 09/13/17 06:31 Resp 18 09/13/17 06:31 BP 141/80 09/13/17 06:31 Pulse Ox 99 09/13/17 06:31 H&P (including ROS) documented in medical record: Yes Previous reaction to sedatives/anesthetics: No Dietary Status: NPO after Midnight Dentition: full dentition ASA Classification *see protocol: CLASS III-Severe systemic disease Plan of Care: Pt appropriate candidate for procedure/moderate/conscious sedation , Risks/benefits of procedure/sedation discussed w/ patient/family
[2017-09-13] MEDS ORDERED: Isovue-300 150 ML INFUS..BTL IV ONE (07:25)
[2017-09-13] MEDS ORDERED: Isovue-300 50 ML VIAL IVP ONE (07:25)
[2017-09-13] MEDS ORDERED: Heparin 1,000 UNITS/500 mL 1,500 ML ONE (07:25)
--- NOTE | 2017-09-13 07:50 | History & Physical Report ---
Date of Encounter: 09/13/17 Time of Encounter: 07:15 24 Hour HP Update - Instructions Instructions: If the History and Physical is less than 30 days old and was completed prior to A.M. admission and or procedure and has NOT been updated on calendar day of procedure please complete this update prior to performing procedure. - Update Patient reports changes in Medical Condition: No Changes in examination, assessment, or condition: No Changes in Medication: No Preop tests/diagnostics Reviewed: Yes Surgery Remains Indicated: Yes Consent for Planned Operative Procedure(s) Verified: Yes - Pre-Operative Checklist Preoperative Checklist Indicated: Yes Prophylactic Antibiotic Ordered: Yes (vancomycin due to mRSA risk) Home Medications Include Beta Jacobo: No Beta Jacobo Taken Today (Day of Surgery): No Beta Jacobo Taken Yesterday (Day Prior to Surgery): No Is VTE Prophylaxis Indicated?: Yes
[2017-09-13] MEDS ORDERED: *HR* Heparin 5,000 UNIT/ML VIAL ONE ×2 (09:27→09:33)
[2017-09-13] MEDS ORDERED: Ondansetron 4 MG/2 ML VIAL IVP PRN ×3 (10:12→12:54)
[2017-09-13] MEDS: *HR* FentaNYL (PF) 100 MCG/2 ML VIAL IVP PRN ×2 (12:12→12:17)
--- NOTE | 2017-09-13 12:14 | Operative Note ---
Date of procedure: 09/13/17 Pre-op diagnosis: Peripheral Vascular Disease with claudication Post-op diagnosis: same Procedure: 1. Angiogram via left common femoral artery. 2. Left iliofemoral endarterectomy. 3. Left common femoral to right common femoral artery endarterectomy with 6mm PTFE graft. Complications: None Anesthesia: GETA Surgeon: Willian Canales Was there an assistant cook present: No Estimated blood loss (cc): 250 Specimen: Left lower extremity plaque Condition: stable Disposition: PACU Procedure in Detail: Indications: The patient is a 62-year-old male with a history of hypertension, hyperlipidemia and tobacco abuse. The patient was noted to have severe peripheral vascular disease with disabling claudication. He is found have bilateral iliac and femoral disease including a right external iliac artery occlusion. Revascularization was recommended for symptomatic relief. Procedure: The patient was identified in the preoperative area. The risks, benefits, and alternatives of the procedure were discussed and all questions were answered. The patient was taken to the operating room and placed in supine position on the operating room table. After the induction of general endotracheal anesthesia, he was cleaned and draped in normal sterile fashion. An oblique incision was made over the left groin sharply. Hemostasis was obtained with electrocautery. Through a process of blunt, sharp, and electrocautery dissection, the left femoral vessels were dissected circumferentially and surrounded with vessel loops. An oblique incision was then made over the right groin sharply. Hemostasis was obtained with electrocautery. Through a process of blunt, sharp, and electrocautery dissection, the right femoral vessels were dissected circumferentially and surrounded with vessel loops. A graft was tunneled between the right and left femoral incisions. The patient received 5000 units of heparin intravenously. After waiting adequate time for the heparin to circulate, large bore needle was used to cannulate left common femoral artery. A wire was advanced through the needle into the aorta under fluoroscopic view. The needle was withdrawn and a 6-Greek sheath was advanced over the wire into the iliac artery on the left. A catheter was advanced into the aorta and the wire was removed. An angiogram was performed this revealed significant external iliac artery disease. The disease was noted to be to low for stent placement. The left external iliac artery was dissected underneath the inguinal ligament and surrounded with vessel loops. The external iliac artery was occluded above the lesion. Longitudinal arteriotomy was then made into the common femoral artery and extended into the external iliac artery proximally and down to the deep femoral artery distally. Using a dental freer an iliofemoral endarterectomy was then performed. Endpoints were inspected and no elevated flaps were noted. Vigorous antegrade pulsatile flow was noted through the external iliac artery. The bypass graft was cut to fit the arteriotomy and sutured in place with a running 6-0 Prolene. The vessels were flushed through the graft. Heparinized saline was infused into the graft lumen. The graft was clamped with an atraumatic clamp. Flow was restored in the left femoral vessels. The right femoral vessels were then occluded. A longitudinal arteriotomy was made into the common femoral artery on the right The distal end of the graft was cut to fit the arteriotomy. The graft was anastamosed with a running 6-0 Prolene. Prior to completing the anastamosis, the femoral vessels were flushed through the graft anastamosis and heparin was infused into the lumen. The anastamosis was completed and flow was restored in the right lower extremity. Thrombin and gelfoam were used at the proximal anastamosis. Polyphasic signals were noted distal to the anastamoses. The wounds were irrigated with antibiotic-containing saline. Platelet rich and platelet poor plasma were infused into the wounds. Meticulous hemostasis was obtained throughout the wound with electrocautery. Wounds were reapproximated with layers of 2-0 and 3-0 Vicryl. Skin was reapproximated with 3-0 Monocryl. Sterile dressing was applied. The patient was extubated and taken to recovery room in stable condition.
[2017-09-13] MEDS ORDERED: Naloxone 0.4 MG/ML INJ IVP PRN ×2 (12:16→12:54)
[2017-09-13] MEDS ORDERED: Acetaminophen 325 MG TABLET PO PRN ×2 (12:16→12:54)
[2017-09-13] MEDS ORDERED: *HR* Labetalol 20 MG/4 ML SYRINGE IVP PRN ×2 (12:16→12:54)
[2017-09-13] MEDS ORDERED: OXYCODONE Oral CONC 10 MG/0.5 ML ORAL.SYG SL PRN ×4 (12:16→12:54)
[2017-09-13] MEDS ORDERED: *HR* OxyCODONE Immed Rel 5 MG TABLET PO PRN ×2 (12:16→12:54)
[2017-09-13] MEDS ORDERED: 0.9 % Sodium Chloride 1,000 ML IVC SCH ×2 (12:30→12:54)
--- NOTE | 2017-09-13 12:40 | Anesthesia Evaluation Post Op ---
Date of Encounter: 09/13/17 Time of Encounter: 12:39 - Vital Signs Vital Signs: Vital Signs/O2 Sat, Most Current Temp Pulse Resp BP Pulse Ox 99.1 F 59 14 122/80 100 09/13/17 12:25 09/13/17 12:25 09/13/17 12:25 09/13/17 12:25 09/13/17 12:25 - Lungs Lungs: Clear Ascult./Percussion - Airway Airway: Non-obstructed - Cardiovascular Regular Rate - Mental Status Mental Status: Alert & Oriented, Answers Appropriately - Pain Pain Scale: 5 Pain Scale used: Numeric (1 - 10) - Nausea Vomiting Nausea Vomiting: Not Present - Hydration Hydration: Ice chips, Has not voided - Discharge PostOp Status: Transfer Patient to floor
[2017-09-13] MEDS ORDERED: traZODone 50 MG TABLET PO PRN (12:54)
[2017-09-13] MEDS ORDERED: *HR* OxyCODONE/APAP 5/325 TABLET PO PRN (12:54)
[2017-09-13] MEDS ORDERED: Lidocaine -MPF 4% 5 ML AMPUL ONE (14:11)
[2017-09-13] MEDS ORDERED: *HR* Metoprolol 5 MG/5 ML VIAL IVP SCH (18:00)
[2017-09-13] MEDS: *HR* Metoprolol 5 MG/5 ML VIAL IVP SCH (18:25)
[2017-09-13] MEDS ORDERED: Vancomycin 1,000 MG in D5% in Water 250 ML IVPB ONE (19:00)
[2017-09-13] MEDS ORDERED: Vancomycin 0 MG in D5% in Water 250 ML IVPB ONE (19:00)
[2017-09-13] MEDS: Topiramate 25 MG TABLET PO SCH (20:35)
[2017-09-13] MEDS: Famotidine 20 MG TABLET PO SCH (20:36)
[2017-09-13] MEDS: Budesonide/Formoterol 160/4.5 MDI IH SCH (21:45)
[2017-09-14] MEDS: *HR* Metoprolol 5 MG/5 ML VIAL IVP SCH ×2 (00:18→06:12)
[2017-09-14 03:47] LABS: Basophils % 0.2 %; Eosinophils % 0.2 %; Hematocrit 30.2 % (37.5-50.1); Immature Granulocytes % 0.3 % (0-4); Immature Platelets 4.9 % (1.1-6.1); Lymphocytes # 0.7 K/mcL (0.6-4.6); Lymphocytes % 12.4 %; Mean Corpuscular HGB Conc 33.1 g/dL (31.6-35.5); Mean Corpuscular Hemoglobin 35.2 pg (28.0-33.3); Mean Corpuscular Volume 106.3 fL (83.0-100.0); Mean Platelet Volume 11.2 fL (9.4-12.4); Monocytes # 0.4 K/mcL (0.0-1.3); Monocytes % 7.3 %; Red Blood Count 2.84 M/mcL (4.19-5.50); Red Cell Distribution Width 13.2 % (11.5-14.5); Segmented Neutrophils % 79.6 %
[2017-09-14 04:04] LABS: BUN/Creatinine Ratio 10 (6-26); Blood Urea Nitrogen 8 mg/dL (8-23); Calcium 7.2 mg/dL (8.6-10.3); Carbon Dioxide 23 mEq/L (23-29); Chloride 112 mEq/L (98-107); Glucose 98 mg/dL (70-105); Osmolality,Calculated 286 (280-300); Potassium 3.5 mEq/L (3.5-5.1); Sodium 139 mEq/L (136-145); eGFR For African Americans > 60 (> 60); eGFR For Non-African Americans > 60 (> 60)
[2017-09-14 04:05] LABS: Neutrophils # 4.5 K/mcL (1.6-8.9)
[2017-09-14 04:06] LABS: Platelet Count 85 K/mcL (140-400)
[2017-09-14 04:08] LABS: Platelet Estimate Decreased (Normal)
[2017-09-14] MEDS ORDERED: *HR* Heparin 5,000 UNIT/ML VIAL SQ SCH (06:00)
[2017-09-14 06:19] VITALS: BP 132/86
[2017-09-14] MEDS: Famotidine 20 MG TABLET PO SCH (07:37)
[2017-09-14] MEDS: Topiramate 25 MG TABLET PO SCH (07:37)
--- NOTE | 2017-09-14 07:47 | Discharge Summary ---
Orders not resulted at time of discharge: Pending orders 09/13/17 Red Blood Cells [BBK] Stat 09/13/17 11:15 Surgical Pathology [PTH] Routine Date of Encounter: 09/14/17 Time of Encounter: 07:45 - Discharge Diagnosis (1) Atherosclerosis of [place] arteries of extremities with intermittent claudication, bilateral legs Priority: Primary Status: Chronic Comments: Patient is postoperative day #1 after femoral endarterectomy and femoral to femoral artery bypass. He reports that his leg feels much better. He reports adequate pain control. He appears to be healing well. He will be discharged today. (2) Chronic anemia Priority: Secondary Status: Chronic Comments: The patient has chronic anemia with acute expected postoperative blood loss anemia. He is hemodynamically stable without evidence of ongoing blood loss. (3) HTN (hypertension) Priority: Secondary Status: Chronic Comments: His counseled regarding atherosclerotic risk factor reduction. Qualifiers: Hypertension type: essential hypertension Qualified Code(s): I10 - Essential (primary) hypertension (4) Tobacco abuse Priority: Secondary Status: Chronic (5) Mixed hyperlipidemia Priority: Secondary Status: Chronic (6) Hepatitis C Priority: Secondary Status: Chronic Qualifiers: Viral hepatitis chronicity: unspecified Hepatic coma status: without hepatic coma Qualified Code(s): B19.20 - Unspecified viral hepatitis C without hepatic coma - Hospital Course Hospital course: Mr. Mcintyre is a 62 year old male Time spent discussing smoking cessation with patient: 3 to 10 minutes - Time Spent with Patient Total time spent providing and/or coordinating discharge services: - Discharge Medications Prescriptions: OxyCODONE/APAP 5/325 [Percocet 5/325 MG] 1 each PO Q6HR PRN 7 Days #25 tablet PRN Reason: Postoperative pain Home Medications: Budesonide/Formoterol 160/4.5 [Symbicort 160/4.5] 2 puff IH BIDR 05/06/15 [ History] Cilostazol [Pletal] 100 mg PO BID 05/06/15 [History] Clopidogrel [Plavix] 75 mg PO DAILY 05/06/15 [History] Lisinopril [Zestril] 20 mg PO DAILY 05/06/15 [History] Lovastatin 10 mg PO DAILY 05/06/15 [History] traZODone [TraZODone] 50 - 150 mg PO HS PRN 05/06/15 [History] Albuterol Sulfate [Albuterol Inhaler] 2 puff IH Q6HR PRN 06/16/16 [History] Aspirin Enteric Coated [Aspirin EC] 81 mg PO DAILY 06/16/16 [History] Buspirone HCl [Buspar] 30 mg PO BID 06/16/16 [History] Ferrous Sulfate [Iron] 325 mg PO BID 06/28/16 [History] Sertraline [Zoloft] 50 mg PO DAILY 06/28/16 [History] Cholecalciferol (D-3) [Vitamin D] 5,000 unit PO DAILY 09/13/17 [History] Cyanocobalamin (B-12) [Vitamin B12] 1,000 mcg PO DAILY 09/13/17 [History] Folic Acid 1 mg PO DAILY 09/13/17 [History] Meloxicam [Mobic] 15 mg PO DAILY 09/13/17 [History] Ranitidine HCl [Heartburn Relief] 150 mg PO BID 09/13/17 [History] Topiramate 25 mg PO BID 09/13/17 [History] OxyCODONE/APAP 5/325 [Percocet 5/325 MG] 1 each PO Q6HR PRN 7 Days #25 tablet [Rx] Allergies/Adverse Reactions: 3 Allergy/AdvReac Type Severity Reaction Status Date / Time hydrocodone [From Vicodin] AdvReac Nausea Verified 09/13/17 07:50 Date of admission: 09/13/17 13:09 Primary care physician: Annamarie Denton Procedure(s) Performed: 1. Angiogram via left common femoral artery. 2. Left iliofemoral endarterectomy. 3. Left common femoral to right common femoral artery endarterectomy with 6mm PTFE graft. Discharging clinician: Willian Canales Anticipated date of discharge: 09/14/17 Exam Vital Signs, Last 4 Hours Temp Pulse Resp BP Pulse Ox 09/14/17 06:00 59 17 132/86 99 09/14/17 04:00 96.7 F L 63 24 135/77 96 General: Present: Conversant, No Apparent Distress HEENT: Present: Pupils equal Cardiac: Present: Reg Rate and Rhythm Lungs: Present: Normal Breath Sounds Neuro: Present: Alert and responsive, No focal deficits noted Abdomen: Present: Soft Vascular: Present: Normal capillary refill, Surgical incisions (Clean, dry and intact without erythema or drainage). Absent: Cyanosis, Edema Skin: Present: No rashes noted on visualized skin - Patient Status Disposition: Home, Self-Care Condition: Good Functional capacity at discharge: independent ambulation Overall status at discharge: patient is back to baseline - Discharge Instructions Instructions: Peripheral Vascular Disorders (DC), Chronic Obstructive Pulmonary Disease (DC), Remote Superficial Femoral Artery Endarterectomy (DC), Chronic Hypertension (DC), Anemia (GEN) Follow Up With: Willian Canales MD [Partnered Physician] - 10/30/17 1:50 pm Annamarie Denton CNP [Primary Care Provider] - 09/19/17 9:15 am (Hospital Follow Up with Breanna Roblero) Forms: Work/School Release Additional Instructions: Remove bandages and shower on 09/15/2017. Wash wounds gently and pat to dry. Applied dry gauze to wounds daily for 7 days. No tub baths or swimming until 10/10/2017. Call Dr. Canales with questions or concerns at [phone]. - Diet and Activity Activity: increase activity as tolerated Diet: advance to your usual diet - VTE Documentation of Mechanical Device: Intermittent pneumatic compression device
[2017-09-14] MEDS ORDERED: Folic Acid 1 MG TABLET PO SCH (09:00)
[2017-09-14] MEDS ORDERED: Cholecalciferol (D-3) 1,000 UNIT TABLET PO SCH (09:00)
[2017-09-14] MEDS ORDERED: Lisinopril 20 MG TABLET PO SCH (09:00)
[2017-09-14] MEDS ORDERED: Aspirin Enteric Coated 81 MG Tablet PO SCH (09:00)
[2017-09-14] MEDS ORDERED: Cyanocobalamin (B-12) 1,000 MCG TABLET PO SCH (09:00)
[2017-09-14] MEDS: Budesonide/Formoterol 160/4.5 MDI IH SCH (10:44)
== END 2017-09-14 11:05 | disposition home or self-care (01) | DRG 169 ==
LOC: SAMDAY 06:14 → ICNU 13:09
PROVIDERS: ADMIT Surgery; ATTEND Surgery
PROC: VASFFBG (ICD-10-PCS; 2017-09-13 07:45)

== ENCOUNTER 2018-03-08 09:42 | Inpatient (IN) ==
[2018-03-08] MEDS ORDERED: Albuterol 2.5 MG/3 ML NEBULIZER ONE (10:16)
--- NOTE | 2018-03-08 10:27 | Anesthesia Evaluation PreOp ---
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 (L-sided weakness/numbness and facial droop 2013 (resolved)) Other Medical History: Hepatic (Hep C - never been treated, cirrhosis), GERD Anesthesia History: No Prior Anesthetic Complications, Past Anesthesia (Right femoral endarterectomy, left iniofemoral endarterectomy, femoral-femoral endarterectomy) Alcohol Use: occasionally, recent Drug use: marijuana Medications and Allergies Budesonide/Formoterol 160/4.5 [Symbicort 160/4.5] 2 puff IH BIDR 05/06/15 [History] Cilostazol [Pletal] 100 mg PO BID 05/06/15 [History] Clopidogrel [Plavix] 75 mg PO DAILY 05/06/15 [History] Lisinopril [Zestril] 20 mg PO DAILY 05/06/15 [History] Lovastatin 10 mg PO DAILY 05/06/15 [History] traZODone [TraZODone] 50 - 150 mg PO HS PRN 05/06/15 [History] Albuterol Sulfate [Albuterol Inhaler] 2 puff IH Q6HR PRN 06/16/16 [History] Aspirin Enteric Coated [Aspirin EC] 81 mg PO DAILY 06/16/16 [History] Buspirone HCl [Buspar] 30 mg PO BID 06/16/16 [History] Ferrous Sulfate [Iron] 325 mg PO BID 06/28/16 [History] Sertraline [Zoloft] 50 mg PO DAILY 06/28/16 [History] Cholecalciferol (D-3) [Vitamin D] 5,000 unit PO DAILY 09/13/17 [History] Cyanocobalamin (B-12) [Vitamin B12] 1,000 mcg PO DAILY 09/13/17 [History] Folic Acid 1 mg PO DAILY 09/13/17 [History] Meloxicam [Mobic] 15 mg PO DAILY 09/13/17 [History] Ranitidine HCl [Heartburn Relief] 150 mg PO BID 09/13/17 [History] Topiramate 25 mg PO BID 09/13/17 [History] OxyCODONE/APAP 5/325 [Percocet 5/325 MG] 1 each PO Q6HR PRN 7 Days #25 tablet 09/14/17 [Rx] Allergy/AdvReac Type Severity Reaction Status Date / Time hydrocodone [From Vicodin] AdvReac Nausea Verified 09/13/17 07:50 - Meds/Allergy Pre-op Review Medications Reviewed: Yes Allergies Reviewed: Yes Beta Blockers on Current Med List: No Anesthesia Results - Labs Laboratory Tests 03/02/18 03/02/18 03/02/18 15:06 15:06 15:06 WBC 4.2 L Hgb 12.9 Hct 39.0 Plt Count 135 L PT 11.3 INR 1.0 APTT 34.1 Sodium 133 L Potassium 4.4 Chloride 101 Carbon Dioxide 26 BUN 5 L Creatinine 0.93 Est GFR ( Amer) > 60 Est GFR (Non-Af Amer) > 60 BUN/Creatinine Ratio 5 L Glucose 87 Calculated Osmolality 273 L Calcium 9.5 - Imaging EKG: report reviewed, image reviewed (SB) Anesthesia Exam Last Vital Signs Temp 97.4 F L 03/08/18 10:15 Pulse 68 03/08/18 10:15 Resp 18 03/08/18 10:15 BP 151/86 03/08/18 10:15 Pulse Ox 98 03/08/18 10:15 Weight: 76 kg NPO (# of Hours): > 8 hrs - HEENT Pupil (Motor): Pupils equal, EOMI Mallampati: II Teeth: Edentulous Denture Type: Upper: Complete, Lower: Complete Oral Opening: Greater than 3 - FUEL TECHNICIAN LOC: Oriented - Cardiac Rhythm: Regular Murmur: None - Pulmonary Breath Sounds: bilateral Clear Respiratory Effort: Symmetrical Anesthesia Assess/Plan ASA Score: 3 Level of consciousness: Cooperative Anesthetic Plan: General Monitoring Plan: Standard Monitors, A-Line Recovery Plan: PACU
[2018-03-08] MEDS ORDERED: *HR* FentaNYL (PF) 100 MCG/2 ML VIAL ONE ×2 (10:30→13:31)
[2018-03-08] MEDS ORDERED: Albuterol 2.5 MG/3 ML NEBULIZER IH ONE (10:31)
[2018-03-08] MEDS ORDERED: CeFAZolin Syr 2,000MG/20 ML 2,000 MG/20 ML SYRINGE IVPB ONE (10:31)
[2018-03-08] MEDS ORDERED: *HR* Midazolam HCl 2 MG/2 ML VIAL ONE (10:31)
[2018-03-08] MEDS ORDERED: *HR* Propofol 200 MG/20 ML VIAL IVP ONE ×2 (10:33→12:49)
[2018-03-08] MEDS ORDERED: Ringers Solution, Lactated 1,000 ML IVC SCH (10:45)
[2018-03-08] MEDS ORDERED: Lidocaine -MPF 2% 2 ML VIAL ONE ×2 (10:45→11:59)
[2018-03-08] MEDS ORDERED: *HR* Succinylcholine 200 MG/10 ML VIAL IVP ONE (10:45)
[2018-03-08] MEDS ORDERED: Dexamethasone 4 MG/ML VIAL ONE (10:47)
[2018-03-08] MEDS ORDERED: *HR* Heparin 5,000 UNIT/ML VIAL ONE (10:49)
[2018-03-08] MEDS ORDERED: Ondansetron 4 MG/2 ML VIAL ONE (10:53)
[2018-03-08] MEDS ORDERED: EPHEDrine 50 MG/ML VIAL ONE (11:05)
[2018-03-08] MEDS ORDERED: Heparin 1,000 UNITS/500 mL 500 ML ONE (11:35)
[2018-03-08] MEDS ORDERED: Esmolol 100 MG/10 ML VIAL IVP ONE (11:36)
[2018-03-08] MEDS ORDERED: *HR* Remifentanil 2 MG VIAL IVP ONE (11:38)
--- NOTE | 2018-03-08 11:42 | History & Physical Report ---
Date of Encounter: 03/08/18 Time of Encounter: 11:40 24 Hour HP Update - Instructions Instructions: If the History and Physical is less than 30 days old and was completed prior to A.M. admission and or procedure and has NOT been updated on calendar day of procedure please complete this update prior to performing procedure. - Update Patient reports changes in Medical Condition: No Changes in examination, assessment, or condition: No Changes in Medication: No Preop tests/diagnostics Reviewed: Yes Surgery Remains Indicated: Yes Consent for Planned Operative Procedure(s) Verified: Yes - Pre-Operative Checklist Preoperative Checklist Indicated: No Prophylactic Antibiotic Ordered: Yes (vancomycin due to MRSA risk) Home Medications Include Beta Jacobo: No Beta Jacobo Taken Today (Day of Surgery): No Beta Jacobo Taken Yesterday (Day Prior to Surgery): No Is VTE Prophylaxis Indicated?: Yes
[2018-03-08] MEDS ORDERED: Heparin 1,000 UNITS/500 mL 1,000 ML ONE (12:01)
[2018-03-08] MEDS ORDERED: Lidocaine 1% 20 ML MDV ONE (12:01)
[2018-03-08] MEDS ORDERED: Neostigmine Methylsulfate 3 MG/3 ML SYRINGE ONE (13:24)
[2018-03-08] MEDS ORDERED: Ondansetron 4 MG/2 ML VIAL IVP ONE (13:54)
[2018-03-08] MEDS ORDERED: *HR* OxyCODONE Immed Rel 5 MG TABLET PO PRN ×2 (13:54→17:22)
[2018-03-08] MEDS ORDERED: *HR* Promethazine 25 MG/ML VIAL IVP PRN (13:54)
[2018-03-08] MEDS ORDERED: *HR* PHENYLEPHRINE 1,000 MCG/10 ML SYRINGE IVP ONE (14:43)
[2018-03-08] MEDS ORDERED: *HR* Rocuronium Bromide 50 MG/5 ML VIAL ONE (14:43)
[2018-03-08] MEDS ORDERED: Protamine Sulfate 50 MG/5 ML VIAL IVP ONE (15:15)
[2018-03-08] MEDS: *HR* HYDROmorphone (PF) 1 MG/ML SYRINGE IVP PRN ×2 (16:04→16:20)
--- NOTE | 2018-03-08 16:06 | Operative Note ---
Date of procedure: 03/08/18 Pre-op diagnosis: Peripheral vascular disease with disabling claudication Post-op diagnosis: same Procedure: 1. Femoral to femoral artery bypass graft thrombectomy with revision of the distal anastomosis with a Hemashield patch. 2. Right common and deep femoral artery endarterectomy. Complications: None Anesthesia: GETA Surgeon: Willian Canales Was there an sales operations assistant present: No Estimated blood loss (cc): 200 Specimen: None Condition: stable Disposition: PACU Procedure in Detail: Indications: The patient is a 63 year old male with a history of peripheral vascular disease with disabling claudication. He previously underwent a femoral to femoral artery bypass for a left iliac artery occlusion. He developed recurrent symptoms and a CT scan revealed that his bypass graft was occluded. Procedure: The patient was identified in the preoperative area. The risks, benefits and alternatives were discussed and all questions were answered. The patient was taken to the operating room and placed in the supine position on the operating room table. After the induction of general endotracheal anesthesia, the patient was cleaned and draped in the normal sterile fashion. An oblique incision was made sharply through his previous right groin scar overlying the right femoral vessels. Hemostasis was obtained with electrocautery. Through a process of blunt, sharp and electrocautery dissection, the right distal external iliac, deep and superficial femoral arteries were dissected and surrounded with vessel loops. The graft limb was also dissected and surrounded with vesel loops. The patient received a 5000 unit bolus of heparin and additional heparin was given throughout the procedure to maintain adequate anticoagulation. After waiting adequate time or the heparin to circulate, the vessels were occlu ded with the vessel loops. A longitudinal arteriotomy was made through the graft anastamosis and extended distally into the [place] artery. No flow was noted on release of the loops. A 4 [place] lela catheter was passed into the bypass graft and inflated. It was withdrawn and some acute thrombus and chronic embolic material was retrieved. This was sent to pathology. Sluggish flow was noted. A 5-Sinhala Lela catheter was then passed through the bypass graft and inflated. It was withdrawn and additional thrombus was retrieved. Brisk pulsatile flow was noted through the graft at this time. Additional passes of the catheter resulted in no additional thrombus or embolus proximally. Upon release of the distal vessel loop no significant flow was noted through the deep femoral artery. Extensive intimal hyperplasia was noted. Using a dental freer and endarterectomy was performed on the distal common femoral and deep femoral artery. Significant retrograde flow was noted from the deep femoral artery after the endarterectomy. . The vessels and graft were flushed with heparin. The anastomosis between the graft and femoral artery appeared to be stenotic. A Hemashield patch was cut to fit the graftotomy. It was sutured in place with a running 6-0 Prolene. Prior to completing the closure, the vessels were flushed, the graft was flushed and heparin was infused into the lumen. Flow was restored in the [place] vessels and graft. Polyphasic signals were identified in the posterior tibial and dorsalis pedis arteries below the ankle. The wound was irrigated with antibiotic containing saline. Hemostasis was obtained with electrocautery. The wound was reapproximated with 2-0 and 3-0 vicryl. Skin was reapproximated with 3-0 Monocryl. Sterile dressings were applied. The patient was extubated and taken to the recover room in stable condition.
--- NOTE | 2018-03-08 16:45 | Anesthesia Evaluation Post Op ---
Date of Encounter: 03/08/18 Time of Encounter: 16:44 - Vital Signs Vital Signs: Vital Signs Temp Pulse Resp BP Pulse Ox 03/08/18 16:12 57 14 156/72 96 03/08/18 16:02 56 16 170/84 98 03/08/18 15:52 98.4 F 60 10 157/104 100 03/08/18 12:06 68 153/82 95 03/08/18 10:15 97.4 F L 68 18 151/86 98 Intake and Output 03/08/18 03/08/18 03/08/18 07:59 15:59 23:59 Output Total 300 / 300 Balance -300 / -300 Output: Estimated Blood Loss 300 / 300 Other: Weight 75.75 kg Patient Weight 03/08/18 23:59 Weight 75.75 kg - Lungs Lungs: Clear Ascult./Percussion - Airway Airway: Non-obstructed - Cardiovascular Regular Rate - Mental Status Mental Status: Alert & Oriented, Answers Appropriately - Nausea Vomiting Nausea Vomiting: Not Present - Hydration Hydration: Tolerates oral liquids - Discharge PostOp Status: Transfer Patient to floor
[2018-03-08] MEDS ORDERED: 0.9 % Sodium Chloride 1,000 ML IVC SCH (17:22)
[2018-03-08] MEDS ORDERED: Acetaminophen 325 MG TABLET PO PRN (17:22)
[2018-03-08] MEDS ORDERED: *HR* Labetalol 20 MG/4 ML SYRINGE IVP PRN (17:22)
[2018-03-08] MEDS ORDERED: Naloxone 0.4 MG/ML INJ IVP PRN (17:22)
[2018-03-08] MEDS ORDERED: OXYCODONE Oral CONC 10 MG/0.5 ML ORAL.SYG SL PRN ×2 (17:22)
[2018-03-08] MEDS ORDERED: traZODone 50 MG TABLET PO PRN (17:22)
[2018-03-08] MEDS ORDERED: Ondansetron 4 MG/2 ML VIAL IVP PRN (17:22)
[2018-03-08] MEDS ORDERED: Methocarbamol 500 MG TABLET PO PRN (17:22)
[2018-03-08] MEDS ORDERED: *HR* Heparin 5,000 UNIT/ML VIAL SQ SCH (18:00)
[2018-03-08] MEDS: *HR* Metoprolol 5 MG/5 ML VIAL IVP SCH ×2 (18:29→23:39)
[2018-03-08] MEDS: *HR* Heparin 5,000 UNIT/ML VIAL SQ SCH (18:33)
[2018-03-08] MEDS: Famotidine 20 MG TABLET PO SCH (20:20)
[2018-03-08] MEDS: Budesonide/Formoterol 160/4.5 1 PUFF INH IH SCH (20:45)
[2018-03-08] MEDS: *HR* OxyCODONE/APAP 5/325 TABLET PO PRN (21:25)
[2018-03-09 03:12] LABS: Hematocrit 32.9 % (37.5-50.1); Immature Granulocytes % 0.4 % (0-4); Lymphocytes % 16.2 %; Mean Corpuscular HGB Conc 31.9 g/dL (31.6-35.5); Mean Corpuscular Hemoglobin 34.4 pg (28.0-33.3); Mean Corpuscular Volume 107.9 fL (83.0-100.0); Mean Platelet Volume 11.2 fL (9.4-12.4); Monocytes % 7.1 %; Platelet Count 110 K/mcL (140-400); Red Blood Count 3.05 M/mcL (4.19-5.50); Red Cell Distribution Width 13.6 % (11.5-14.5); Segmented Neutrophils % 75.3 %
[2018-03-09 03:13] LABS: Basophils % 0.8 %; Eosinophils % 0.2 %; Hemoglobin 10.5 g/dL (12.9-16.9); Lymphocytes # 0.8 K/mcL (0.6-4.6); Monocytes # 0.4 K/mcL (0.0-1.3); Neutrophils # 3.7 K/mcL (1.6-8.9)
[2018-03-09] MEDS: *HR* Metoprolol 5 MG/5 ML VIAL IVP SCH (05:06)
[2018-03-09] MEDS: *HR* Heparin 5,000 UNIT/ML VIAL SQ SCH (05:08)
[2018-03-09] MEDS: *HR* OxyCODONE/APAP 5/325 TABLET PO PRN (07:26)
[2018-03-09] MEDS: Famotidine 20 MG TABLET PO SCH (07:26)
--- NOTE | 2018-03-09 07:35 | Discharge Summary ---
Orders not resulted at time of discharge: Pending orders 03/10/18 04:00 Basic Metabolic Panel AM 0400 Date of Encounter: 03/09/18 Time of Encounter: 07:45 - Discharge Diagnosis (1) Atherosclerosis of [place] arteries of extremities with intermittent claudication, bilateral legs Priority: Primary Status: Chronic Comments: Patient is postoperative day #1 after a femoral to femoral artery bypass graft thrombectomy with revision and a right femoral endarterectomy. The patient reports his right leg feels better. His incision is healing well. His pedal signals present. His compartments are soft. He will be discharged today. (2) HTN (hypertension) Priority: Secondary Status: Chronic Qualifiers: Hypertension type: essential hypertension Qualified Code(s): I10 - Essential (primary) hypertension (3) COPD (chronic obstructive pulmonary disease) Priority: Secondary Status: Chronic Qualifiers: COPD type: emphysema Emphysema type: panlobular Qualified Code(s): J43.1 - Panlobular emphysema (4) Mixed hyperlipidemia Priority: Secondary Status: Chronic (5) Chronic anemia Priority: Secondary Status: Chronic Comments: The patient history of chronic anemia with acute expected postoperative blood loss anemia. He is hemodynamically stable without evidence of ongoing blood loss. (6) Tobacco abuse Priority: Secondary Status: Chronic Comments: The patient history of tobacco abuse. He recently quit smoking. Smoking cessation was reinforced. (7) Hepatitis C Priority: Secondary Status: Chronic Qualifiers: Viral hepatitis chronicity: unspecified Hepatic coma status: without hepatic coma Qualified Code(s): B19.20 - Unspecified viral hepatitis C without hepatic coma - Hospital Course Hospital course: Mr. Mcintyre is a 63 year old male with hypertension, chronic anemia, hepatitis C, COPD and a history of tobacco abuse. The patient is a history of severe peripheral vascular disease. He is previously undergone a femoral to femoral artery bypass graft. This will femoral artery bypass graft is occluded. He was admitted and taken to the operating room where he underwent a graft thrombectomy with revision of the bypass. He has required a right femoral endarterectomy. He tolerated the procedure well. He was discharged home in stable condition on postoperative day #1 without complications. - Time Spent with Patient Total time spent providing and/or coordinating discharge services: - Discharge Medications Home Medications: RX: Budesonide/Formoterol 160/4.5 [Symbicort 160/4.5] 2 puff IH BIDR 02/03/16 [History] RX: Clopidogrel [Plavix] 75 mg PO DAILY 05/06/15 [History] RX: Lisinopril [Zestril] 20 mg PO DAILY 05/06/15 [History] RX: Lovastatin 10 mg PO DAILY 05/06/15 [History] RX: traZODone [TraZODone] 50 - 150 mg PO HS PRN 05/06/15 [History] RX: Albuterol Sulfate [Albuterol Inhaler] 2 puff IH Q6HR PRN 06/16/16 [History] RX: Aspirin Enteric Coated [Aspirin EC] 81 mg PO DAILY 06/16/16 [History] RX: Buspirone HCl [Buspar] 30 mg PO BID 06/16/16 [History] RX: Ferrous Sulfate [Iron] 325 mg PO BID 06/28/16 [History] RX: Sertraline [Zoloft] 50 mg PO DAILY 06/28/16 [History] RX: Cholecalciferol (D-3) [Vitamin D] 5,000 unit PO DAILY 09/13/17 [History] RX: Cyanocobalamin (B-12) [Vitamin B12] 1,000 mcg PO DAILY 09/13/17 [History] RX: Folic Acid 1 mg PO DAILY 09/13/17 [History] RX: Ranitidine HCl [Heartburn Relief] 150 mg PO BID 09/13/17 [History] RX: Topiramate 25 mg PO BID 09/13/17 [History] RX: OxyCODONE/APAP 5/325 [Percocet 5/325 MG] 1 each PO Q6HR PRN 7 Days #25 tablet 09/14/17 [Rx] RX: Methocarbamol [Robaxin] 500 mg PO TID PRN 03/08/18 [History] Allergies/Adverse Reactions: Allergy/AdvReac Type Severity Reaction Status Date / Time hydrocodone [From Vicodin] AdvReac Nausea Verified 09/13/17 07:50 Date of admission: 03/08/18 17:19 Primary care physician: Annamarie Denton Procedure(s) Performed: Femoral to femoral artery bypass graft thrombectomy with revision of the distal anastomosis and right deep femoral endarterectomy. Discharging clinician: Willian Canales Anticipated date of discharge: 03/09/18 Exam Vital Signs, Last 4 Hours Temp Pulse Resp BP Pulse Ox 03/09/18 05:05 49 03/09/18 04:35 97.8 F 61 19 139/80 95 General: Present: Conversant Neck: Present: Tracheal deviation Cardiac: Present: Reg Rate and Rhythm Neuro: Present: Alert and responsive, No focal deficits noted Abdomen: Present: Soft, Non-tender. Absent: Masses Vascular: Present: Normal capillary refill, Surgical incisions (Incision clean, dry, intact without erythema or drainage.), Other (Pedal signals present). Absent: Cyanosis, Edema Skin: Present: No rashes noted on visualized skin - Patient Status Disposition: Home, Self-Care Condition: Good Functional capacity at discharge: independent ambulation Overall status at discharge: patient is back to baseline - Discharge Instructions Instructions: Oxycodone/Acetaminophen (By mouth) Follow Up With: Willian Canales MD [Partnered Physician] - 04/10/18 2:30 pm Annamarie Denton CNP [Primary Care Provider] - 03/12/18 9:00 am Additional Instructions: Remove bandage and shower on 03/10/2018: Wash wound gently and pat to dry. Applied dry gauze to wound daily for 7 days. No tub baths or swimming until 04/05/2018. Call Dr. Canales at [phone] with questions or concerns. - Diet and Activity Activity: increase activity as tolerated Diet: advance to your usual diet
[2018-03-09] MEDS ORDERED: Lisinopril 20 MG TABLET PO SCH (09:00)
[2018-03-09] MEDS ORDERED: Folic Acid 1 MG TABLET PO SCH (09:00)
[2018-03-09] MEDS ORDERED: Cholecalciferol (D-3) 1,000 UNIT TABLET PO SCH (09:00)
[2018-03-09] MEDS ORDERED: Cyanocobalamin (B-12) 1,000 MCG TABLET PO SCH (09:00)
[2018-03-09] MEDS ORDERED: Aspirin Enteric Coated 81 MG Tablet PO SCH (09:00)
[2018-03-09] MEDS: Budesonide/Formoterol 160/4.5 1 PUFF INH IH SCH (10:47)
[2018-03-09 11:20] VITALS: BP 174/79
== END 2018-03-09 12:12 | disposition home or self-care (01) | DRG 181 ==
LOC: SAMDAY 09:42 → 2NNU 17:19
PROVIDERS: ADMIT Surgery; ATTEND Surgery
PROC: VASFFBG (ICD-10-PCS; 2018-03-08 11:35)